=== PATIENT | female | born 1985 | race Two or more races ===

== ENCOUNTER 2024-10-06 09:08 | Outpatient (AMB) | payer BC, SELFPAY ==
--- NOTE | 2024-10-06 09:15 | AMB.OBINITIA ---
Vital Signs 10/06/24 09:22 Height 1.57 m Height Method Stated Weight 110.677 kg Weight Measurement Method Standing Scale BMI 44.6 BP 136/78 H Blood Pressure Source Automatic Cuff Blood Pressure Location Right Upper Arm Position Sitting Respiration 18 Pulse 78 Pulse Source Monitor Temp 98 F Temp Source Temporal Artery Scan Pulse Oximetry (%) 98 Oxygen Delivery Method Room Air Allergies/Home Meds Allergies & Medications Allergies No Known Allergies Allergy (Verified 10/06/24 09:23) Medication Reconciliation No Known Home Medications 10/06/24 [History Confirmed 10/06/24] Intake Visit Data Collection New Patient or Established: New Patient (never been to [facility]) Reason for Visit:: First OB visit Do You Feel Safe at Home: Yes Authorities Contacted: N/A PCP or OBGYN visit in last 3 months: Yes Pain Present Currently: No Smoking Status Smoking Status: Never smoker Questionnaires Covid-19 Vaccine Questionnaire Has patient been vacinated for Covid-19 Have you been vacinated for Covid-19: Yes PHQ-9 PHQ-2 Over the last 2 weeks, how often have you been bothered by any of the following problems? 1. Little interest or pleasure in doing things: not at all 2. 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 No set hours Tobacco History Smoking Status: Never smoker Domestic Abuse History Do You Feel Safe at Home: Yes Past Medical History Past Medical History Have you ever been diagnosed with any of the following: Reproductive Problems Endometriosis: No Fibroids: No Genital Herpes: No Pelvic Inflammatory Disease: No Polycystic Ovarian Syndrome: No Previous Pregnancies: Yes (History of vaginal delivery times 08/25/2011 and 3 years ago epidural x 3) Endocrine Problems Diabetes Mellitus Type 2: No Hypothyroidism: Yes (On levothyroxine 88 mcg daily) Blood Problems Anemia: No Psychologic Problems Depression: No Anxiety: No Other Problems Hospitalization: Yes (For childbirth x 3 she will need extension on the) History of Present Illness HPI Narrative Patient is a 39-year-old -0-2-3 status post vaginal delivery x 3. Her children are 1612 and 3. She had uncomplicated vaginal deliveries. She had epidural x 3 in the past. She has had 2 miscarriages in the past. Patient's last Pap was in 2022. She will have 1 at her visit. OB Ultrasound Indication Indication: Size dates and viability OB Ultrasound Ultrasound technique: transvaginal Gestational sac assessment: Presence, location, size, shape: Live IUP crown-rump length 7.51cm. 13-4/7 weeks cardiac activity noted. OB Initial Visit Menstrual History Menstrual reliability: definite Flow: normal Menstrual regularity: irregular Monthly: No Age at menarche: 15 On control pills at conception: No Date of positive home test: 08/09/24 OB History : 6 Para: 3 Hx Total # of Abortions (Spontaneous & Elective): 2 # of Living Children: 3 Delivery History 1st : Child's name: amber date: 05/05/08 sex: male Gestational age at delivery (weeks): 38 Delivery type: vaginal weight (lbs): 2721.554 g History of depression before or after : No 2nd : Child's name: keo date: 09/13/12 sex: male Gestational age at delivery (weeks): 37 Delivery type: vaginal weight (lbs): 3175.147 g History of depression before or after : No 3rd : Child's name: jeanie date: 08/23/21 sex: female Gestational age at delivery (weeks): 38 Delivery type: vaginal weight (lbs): 2721.554 g History of depression before or after : No Infection History & Risk Evaluation History of STDs: none HIV risk evaluation: low risk Hepatitis B risk evaluation: low risk Patient or partner has history of Genital Herpes: No Varicella/chicken pox status: immunized Genetic Screening & History Genetic Screening/Teratology Counseling - Includes patient, baby's father, or anyone in either family with: 1. Patient's age 35 years or older as of estimated date of delivery: Yes 2. Thalassemia (Frisian, Kenyan, Mediterranean, or Background); MCV less than 80: No 3. Neural Tube Defect (Meningomyelocele, Spina Bifida, or Anencephaly): No 4. Congenital Heart Defect: No 5. Down Syndrome: No 6. Abad-Sachs (Ashkenazi Oriental Orthodox, Cajun, [place]): No 7. Betito Disease (Ashkenazi Oriental Orthodox): No 8. Familial Dysautonomia (Ashkenazi Oriental Orthodox): No 9. Sickle Cell Disease or Trait (): No 10. Hemophilia or other blood disorders: No 11. Muscular Dystrophy: No 12. Cystic Fibrosis: No 13. Maria Del Carmen's Chorea: No 14. Mental Retardation/Autism: No 15. Other inherited genetic or chromosomal disorder: No 16. Maternal Metabolic Disorder (EG,TYPE 1 Diabetes, PKU): No 17. Patient or baby's father had a child with defects not listed above: No 18. Recurrent loss or a stillbirth: No 19. Medications (including supplements, vitamins, herbs or otc drugs)/illicit/recreational drugs/alcohol since last menstrual period: No 20. Any other: No Infection History 1. Live with someone with TB or exposed to TB: No 2. Rash or viral illness since last menstrual period: No 3. Hepatitis B,C: No Other (see comments) Source: [employer] Exam General General Appearance: alert, in no apparent distress, comfortable, cooperative, healthy appearing, well groomed and obese Neck Neck exam: Present normal inspection, full ROM and trachea midline Chest Chest inspection: Present normal inspection and symmetric chest wall rise Resp Respiratory exam: Present normal lung sounds bilaterally Card Cardiovascular exam: Present regular rate, normal rhythm and normal heart sounds Abdominal Abdominal exam: Present soft and normal bowel sounds Psych Psychiatric exam: Present normal affect and normal mood Skin Skin exam: Present warm, dry, intact and normal color Assessment & Plan Diagnosis / Problem List (1) : Status: Acute Qualifiers: Weeks of gestation: 13 weeks Qualified Code(s): Z3A.13 - 13 weeks gestation of Assessment and Plan: New OB. Pap will be deferred till . Ordered labs. Patient is unsure about NIPT. (2) Morbid obesity with BMI of 40.0-44.9, adult: Status: Acute (3) Hypothyroidism affecting : Status: Acute Qualifiers: Trimester: first trimester Qualified Code(s): O99.281 - Endocrine, nutritional and metabolic diseases complicating , first trimester; E03.9 - Hypothyroidism, unspecified Additional Plan Follow Up: 4 Weeks Office Procedures OB Clinic LOC & Office Proc's Nursing/Assessment Patient Status: Initial/New Patient OB Clinic Nursing Assessment: Medication Reconciliation, Update PMH in EMR and Vital Signs OB Clinic Coordination of Care: Complex Care and Chronic Disease 1-5, Education Complex Pt/Fam, Education Simp Pt/Fam, Lab and Imaging orders, Results/Orders obtained and Staff clarify orders Special Needs: Heart tones New Patient Charge New Patient Point Assignment: [id number] New Patient Point Charge: VP [employer] Level 4 ([id number]) Bedside Ultrasounds US Transvaginal at bedside: Yes
[2024-10-06 09:22] VITALS: BP 136/78; PULSE 78; RESP 18; TEMP 36.6; O2SAT 98; BMI 44.6
== END 2024-10-06 10:09 | disposition home or self-care (01) ==
PROVIDERS: Supervising Provider Obstetrics & Gynecology; Visit Provider Obstetrics & Gynecology
DX: O09.521 Supervision of elderly multigravida, first trimester (principal); O09.891 Supervision of other high risk pregnancies, first trimester; O99.281 Endocrine, nutritional and metabolic diseases complicating pregnancy, first trimester; E03.9 Hypothyroidism, unspecified; O99.211 Obesity complicating pregnancy, first trimester; E66.01 Morbid (severe) obesity due to excess calories; O09.291 Supervision of pregnancy with other poor reproductive or obstetric history, first trimester; O26.21 Pregnancy care for patient with recurrent pregnancy loss, first trimester; Z3A.13 13 weeks gestation of pregnancy; Z79.890 Hormone replacement therapy
CPT/HCPCS: 76817; 99203; 99204; G0463

== ENCOUNTER 2024-11-04 11:03 | Outpatient (AMB) | payer BC, SELFPAY ==
[2024-11-04 11:13] VITALS: BP 113/75; PULSE 90; RESP 18; TEMP 36.4; O2SAT 97; BMI 45.5
--- NOTE | 2024-11-04 11:13 | AMB.OBVISIT ---
Vital Signs 11/04/24 11:13 Height 1.57 m Height Method Stated Weight 112.151 kg Weight Measurement Method Standing Scale BMI 45.5 BP 113/75 Blood Pressure Source Automatic Cuff Blood Pressure Location Right Upper Arm Position Sitting Respiration 18 Pulse 90 Pulse Source Monitor Temp 97.5 F Temp Source Oral Pulse Oximetry (%) 97 Oxygen Delivery Method Room Air Allergies/Home Meds Allergies & Medications Allergies No Known Allergies Allergy (Verified 11/04/24 11:14) Medication Reconciliation clobetasol 0.05 % topical ointment 1 applic topical QHS 4 weeks #45 grams 11/04/24 [Rx] Intake Visit Data Collection New Patient or Established: Established Patient (seen at [facility] within 3 years) Reason for Visit:: CARE Seen by Clinical Staff ONLY (RN/MA): No Animal Husbandry Technician Required: No Do You Feel Safe at Home: Yes Authorities Contacted: N/A PCP or OBGYN visit in last 3 months: Yes Hx Now: Yes Are you currently on any form of Control: No Pain Present Currently: No Pain Scale Used: Peterson-Giordano/Numerical Pain scale:: 0 Smoking Status Smoking Status: Never smoker Questionnaires Covid-19 Vaccine Questionnaire Has patient been vacinated for Covid-19 Have you been vacinated for Covid-19: Yes PHQ-9 PHQ-2 Over the last 2 weeks, how often have you been bothered by any of the following problems? 1. Little interest or pleasure in doing things: not at all 2. Feeling down, depressed, or hopeless: not at all Total score: 0 PHQ-9 3. Trouble falling or staying asleep, or sleeping too much: Not at all 4. Feeling tired or having little energy: Not at all 5. Poor appetite or overeating: Not at all 6. Feeling bad about yourself - or that you are a failure or have let yourself or your family down: Not at all 7. Trouble concentrating on things, such as reading the newspaper or watching television: Not at all 8. Moving or speaking so slowly that other people could have noticed? - Or the opposite - being so fidgety or restless that you have been moving around a lot more than usual: not at all 9. Thoughts that you would be better off or of hurting yourself in some way: Not at all Total score: 0 Source: Developed by Drs. Evangelista Brooks, Joceline Ahn, Jim King and colleagues, with an educational rubia from [email or web address]. 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 She is hypothyroid and Dr. Diaz is working on her thyroid medications. Care OB Visit Log OB Flowsheet Initial Weight: Not Recorded Date <del>?</del> EGA Weight BP Alb Glu CTX Pres Fundal ht FHR Mov Dilation Station Effacement Hx Notes Visit Note 11/04/24 <del>?</del> 17w 5d 112.151 kg 113/75 17 active Positive flutter. No vaginal bleeding or loss of fluids. Patient is tired. She reports dry skin. And states her face is very dry around her cheeks. DEMETRIUS Calculator Estimated Delivery Date Method Current WG Current Estimate 04/09/25 Ultrasound #1 17w 5d Other Estimates 04/11/25 LMP (Certain) 17w 3d Expected Delivery Route/Plan Patient is a 39-year-old -0-2-3 history of 3 uncomplicated vaginal deliveries in the past. Specific Issue/Plans 1.Obesity with BMI of 45 2. AMA normal NIPT, for level 2 ultrasound 3. Hypothyroid on medication. Notes Visit Date: 11/04/24 Last Updated by: Beverley Menon (OB Clinic)MD Clobetasol ointment ordered to face. Patient on baby aspirin. Dr. Diaz is working on thyroid. Referral to maternal- medicine for 20-week structural survey. NIPT was 46 XY. Office Procedures OB Clinic LOC & Office Proc's Nursing/Assessment Patient Status: Established Patient OB Clinic Nursing Assessment: Medication Reconciliation, Update PMH in EMR and Vital Signs OB Clinic Coordination of Care: Complex Care and Chronic Disease 1-5, Consent,records obtained, informed consent, Education Simp Pt/Fam, Lab and Imaging orders, Results/Orders obtained and Staff clarify orders Special Needs: Heart tones Established Patient Charge Established Patient Point Assignment: 135 Established Patient Point Charge: EP Level 4 (120-155) Assessment & Plan Diagnosis / Problem List (1) Morbid obesity with BMI of 40.0-44.9, adult: Status: Acute Assessment and Plan: Patient on baby aspirin daily. For level [address] Urias. (2) : Status: Acute Qualifiers: Weeks of gestation: 16 weeks Qualified Code(s): Z3A.16 - 16 weeks gestation of Assessment and Plan: NIPT normal. No labs on chart yet. Will find out where she had these drawn and get them on chart. (3) Hypothyroidism affecting : Status: Acute Qualifiers: Trimester: first trimester Qualified Code(s): O99.281 - Endocrine, nutritional and metabolic diseases complicating , first trimester; E03.9 - Hypothyroidism, unspecified Assessment and Plan: Dr. Diaz checking levels. On 88 mcg of levothyroxine daily. (4) Eczema: Status: Acute Qualifiers: Eczema type: unspecified Qualified Code(s): L30.9 - Dermatitis, unspecified Assessment and Plan: Clobetasol ointment written for eczema on face (5) Advanced maternal age (AMA) in : Status: Acute Assessment and Plan: NIPT normal 46 XY. Level 2 ultrasound will be ordered
== END 2024-11-04 11:42 | disposition home or self-care (01) ==
LOC: HODSOBC 11:03
PROVIDERS: Supervising Provider Obstetrics & Gynecology; Visit Provider Obstetrics & Gynecology
DX: O09.522 Supervision of elderly multigravida, second trimester (principal); Z3A.17 17 weeks gestation of pregnancy; O09.892 Supervision of other high risk pregnancies, second trimester; O99.212 Obesity complicating pregnancy, second trimester; E66.01 Morbid (severe) obesity due to excess calories; O99.282 Endocrine, nutritional and metabolic diseases complicating pregnancy, second trimester; E03.9 Hypothyroidism, unspecified; L30.9 Dermatitis, unspecified; O99.712 Diseases of the skin and subcutaneous tissue complicating pregnancy, second trimester; Z79.82 Long term (current) use of aspirin; Z79.890 Hormone replacement therapy
CPT/HCPCS: 99214; G0463

== ENCOUNTER 2024-12-05 11:09 | Outpatient (AMB) | payer BC, SELFPAY ==
[2024-12-05 11:25] VITALS: BP 110/64; PULSE 77; RESP 17; TEMP 36.6; O2SAT 95; BMI 45.5
--- NOTE | 2024-12-05 11:25 | OBCLNT_ITS ---
Vital Signs 12/05/24 11:25 Height 1.57 m Height Method Measured Weight 112.945 kg Weight Measurement Method Standing Scale BMI 45.5 BP 110/64 Blood Pressure Source Automatic Cuff Blood Pressure Location Right Upper Arm Position Sitting Respiration 17 Pulse 77 Pulse Source Monitor Temp 97.8 F Temp Source Temporal Artery Scan Pulse Oximetry (%) 95 Oxygen Delivery Method Room Air Allergies/Home Meds Allergies & Medications Allergies No Known Allergies Allergy (Verified 12/05/24 11:25) Intake Visit Data Collection New Patient or Established: Established Patient (seen at [facility] within 3 years) Reason for Visit:: OBC Seen by Clinical Staff ONLY (RN/MA): No Operator Automated Process Required: No Do You Feel Safe at Home: Yes Authorities Contacted: N/A PCP or OBGYN visit in last 3 months: Yes Date of Last PCP or OBGYN visit: 11/04/24 Hx Now: Yes Are you currently on any form of Control: No Pain Present Currently: No Pain Scale Used: Peterson-Giordano/Numerical Pain scale:: 0 Smoking Status Smoking Status: Never smoker Questionnaires Covid-19 Vaccine Questionnaire Has patient been vacinated for Covid-19 Have you been vacinated for Covid-19: Yes PHQ-9 PHQ-2 Over the last 2 weeks, how often have you been bothered by any of the following problems? 1. Little interest or pleasure in doing things: not at all PHQ-9 8. Moving or speaking so slowly that other people could have noticed? - Or the opposite - being so fidgety or restless that you have been moving around a lot more than usual: not at all Source: Developed by Drs. Evangelista Brooks, Joceline Ahn, Jim King and colleagues, with an educational rubia from [employer]. 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 Her children are age 16, 12, and 3. Care OB Visit Log OB Flowsheet Initial Weight: Not Recorded Date -?-?-?-?-?-?-?-?-?-?-?-?- EGA Weight BP Alb Glu CTX Pres Fundal ht FHR Mov Dilation Station Effacement Hx Notes Visit Note 11/04/24 -?-?-?-?-?-?-?-?-?-?-?-?- 17w 5d 112.151 kg 113/75 17 active Positive flutter. No vaginal bleeding or loss of fluids. Patient is tired. She reports dry skin. And states her face is very dry around her cheeks. 12/05/24 -?-?-?-?-?-?-?-?-?-?-?-?- 22w 1d 112.945 kg 110/64 23 absent active Positive feta l movement no contractions no loss of fluids having gender reveal republican. Has 2 boys at home and a girl. The girl is the youngest. DEMETRIUS Calculator Estimated Delivery Date Method Current WG Current Estimate 04/09/25 Ultrasound #1 22w 1d Other Estimates 04/11/25 LMP (Certain) 21w 6d Expected Delivery Route/Plan Patient is a 39-year-old -0-2-3 history of 3 uncomplicated vaginal deliveries in the past. Specific Issue/Plans 1.Obesity with BMI of 45 2. AMA normal NIPT, for level 2 ultrasound 3. Hypothyroid on medication. Notes Visit Date: 12/05/24 Last Updated by: Beverley Menon (OB Clinic)MD labs up-to-date on the chart ordered 10/06/2024 from [facility] /antibody negative/rubella immune/ RPR nonreactive/ hepatitis B surface antigen negative/ GC negative /Chlamydia negative/ hepatitis C negative /hepatitis B negative/ HIV negative/ urine culture negative/NIPT 46 XY hemoglobin A1c 5.7 hemoglobin 11 hematocrit [address] Urias on chart. Baby 98th percentile. Visit Date: 11/04/24 Last Updated by: Beverley Menon (OB Clinic)MD Clobetasol ointment ordered to face. Patient on baby aspirin. Dr. Diaz is working on thyroid. Referral to maternal- medicine for 20-week structural survey. NIPT was 46 XY. Office Procedures OB Clinic LOC & Office Proc's Nursing/Assessment Patient Status: Established Patient OB Clinic Nursing Assessment: Medication Reconciliation, Update PMH in EMR and Vital Signs OB Clinic Coordination of Care: Consent,records obtained, informed consent, Lab and Imaging orders and Staff clarify orders Special Needs: Heart tones Established Patient Charge Established Patient Point Assignment: 90 Established Patient Point Charge: EP Level 3 (80-115)
== END 2024-12-05 11:41 | disposition home or self-care (01) ==
PROVIDERS: Supervising Provider Obstetrics & Gynecology; Visit Provider Obstetrics & Gynecology
DX: O09.522 Supervision of elderly multigravida, second trimester (principal); O09.892 Supervision of other high risk pregnancies, second trimester; O99.282 Endocrine, nutritional and metabolic diseases complicating pregnancy, second trimester; E03.9 Hypothyroidism, unspecified; O99.212 Obesity complicating pregnancy, second trimester; Z3A.22 22 weeks gestation of pregnancy; Z79.890 Hormone replacement therapy
CPT/HCPCS: 99213; G0463

== ENCOUNTER 2025-01-05 14:23 | Outpatient (AMB) | payer BC, SELFPAY ==
[2025-01-05 14:32] VITALS: BP 108/69; PULSE 94; RESP 17; TEMP 36.4; O2SAT 98; BMI 46.3
--- NOTE | 2025-01-05 14:32 | AMB.OBVISIT ---
Vital Signs 01/05/25 14:32 Height 1.57 m Height Method Stated Weight 114.305 kg Weight Measurement Method Standing Scale BMI 46.3 BP 108/69 Blood Pressure Source Automatic Cuff Blood Pressure Location Right Upper Arm Position Sitting Respiration 17 Pulse 94 Pulse Source Monitor Temp 97.6 F Temp Source Temporal Artery Scan Pulse Oximetry (%) 98 Oxygen Delivery Method Room Air Allergies/Home Meds Allergies & Medications Allergies No Known Allergies Allergy (Verified 01/05/25 14:33) Medication Reconciliation No Known Home Medications 01/05/25 [History Confirmed 01/05/25] Intake Visit Data Collection New Patient or Established: Established Patient (seen at [facility] within 3 years) Reason for Visit:: OBC Seen by Clinical Staff ONLY (RN/MA): No Acid Operator Required: No Do You Feel Safe at Home: Yes Authorities Contacted: N/A PCP or OBGYN visit in last 3 months: Yes Hx Now: Yes Are you currently on any form of Control: No Pain Present Currently: No Pain Scale Used: Peterson-Giordano/Numerical Pain scale:: 0 Smoking Status Smoking Status: Never smoker Questionnaires Covid-19 Vaccine Questionnaire Has patient been vacinated for Covid-19 Have you been vacinated for Covid-19: Yes PHQ-9 PHQ-2 Over the last 2 weeks, how often have you been bothered by any of the following problems? 1. Little interest or pleasure in doing things: not at all 2. Feeling down, depressed, or hopeless: not at all Total score: 0 PHQ-9 3. Trouble falling or staying asleep, or sleeping too much: Not at all 4. Feeling tired or having little energy: Not at all 5. Poor appetite or overeating: Not at all 6. Feeling bad about yourself - or that you are a failure or have let yourself or your family down: Not at all 7. Trouble concentrating on things, such as reading the newspaper or watching television: Not at all 8. Moving or speaking so slowly that other people could have noticed? - Or the opposite - being so fidgety or restless that you have been moving around a lot more than usual: not at all 9. Thoughts that you would be better off or of hurting yourself in some way: Not at all Total score: 0 If you checked off any problems, how difficult have these problems made it for you to do your work, take care of things at home, or get along with other people?: not difficult at all Source: Developed by Drs. Evangelista Brooks, Joceline Ahn, Jim King and colleagues, with an educational rubia from [employer]. 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 No vaginal bleeding or loss of fluids. Patient is tired. She reports dry skin. And states her face is very dry around her cheeks. 12/05/24 <del>?</del> 22w 1d 112.945 kg 110/64 23 absent active Positive movement no contractions no loss of fluids having gender reveal alliance party. Has 2 boys at home and a girl. The girl is the youngest. 01/05/25 <del>?</del> 26w 4d 114.305 kg 108/69 27 active Good movement no contractions no loss of bleeding. Dr. Urias is going to see her next week. Order 2-hour glucose test from [facility]. Baby was measuring large at first ultrasound. Her biggest baby was 7 pounds. DEMETRIUS Calculator Estimated Delivery Date Method Current WG Current Estimate 04/09/25 Ultrasound #1 26w 4d Other Estimates 04/11/25 LMP (Certain) 26w 2d Expected Delivery Route/Plan Patient is a 39-year-old -0-2-3 history of 3 uncomplicated vaginal deliveries in the past. Specific Issue/Plans 1.Obesity with BMI of 45 2. AMA normal NIPT, for level 2 ultrasound 3. Hypothyroid on medication. Notes Visit Date: 12/05/24 Last Updated by: Beverley Menon (OB Clinic)MD labs up-to-date on the chart ordered 10/06/2024 from [facility] /antibody negative/rubella immune/ RPR nonreactive/ hepatitis B surface antigen negative/ GC negative /Chlamydia negative/ hepatitis C negative /hepatitis B negative/ HIV negative/ urine culture negative/NIPT 46 XY hemoglobin A1c 5.7 hemoglobin 11 hematocrit [address] Urias on chart. Baby 98th percentile. Visit Date: 11/04/24 Last Updated by: Beverley Menon (OB Clinic)MD Clobetasol ointment ordered to face. Patient on baby aspirin. Dr. Diaz is working on thyroid. Referral to maternal- medicine for 20-week structural survey. NIPT was 46 XY. Office Procedures OB Clinic LOC & Office Proc's Nursing/Assessment Patient Status: Established Patient OB Clinic Nursing Assessment: Medication Reconciliation, Update PMH in EMR and Vital Signs OB Clinic Coordination of Care: Complex Care and Chronic Disease 1-5, Consent,records obtained, informed consent, Education Simp Pt/Fam and Staff clarify orders Special Needs: Heart tones Established Patient Charge Established Patient Point Assignment: 115 Established Patient Point Charge: EP Level 3 (80-115)
== END 2025-01-05 15:20 | disposition home or self-care (01) ==
LOC: HODSOBC 14:23
PROVIDERS: PCP Obstetrics & Gynecology; Referring Provider Obstetrics & Gynecology; Supervising Provider Obstetrics & Gynecology; Visit Provider Obstetrics & Gynecology
DX: O09.522 Supervision of elderly multigravida, second trimester (principal); O09.892 Supervision of other high risk pregnancies, second trimester; O99.212 Obesity complicating pregnancy, second trimester; O99.282 Endocrine, nutritional and metabolic diseases complicating pregnancy, second trimester; E03.9 Hypothyroidism, unspecified; Z3A.26 26 weeks gestation of pregnancy; Z79.890 Hormone replacement therapy
CPT/HCPCS: 99213; G0463

== ENCOUNTER → 2025-01-06 | Outpatient (CLI) | payer BC, SELFPAY ==
[2025-01-06 13:17] LABS: Basophils # (Auto) 0.0 Thou/mm3 (0.0-0.2); Basophils % (Auto) 0 % (0-2.5); Eosinophils # (Auto) 0.2 Thou/mm3 (0.0-0.5); Eosinophils % (Auto) 3 % (0-10); Hematocrit 31.4 % (36.0-46.0); Hemoglobin 9.8 g/dL (12.0-16.0); Immature Granulocytes Auto 0.04 Thou/mm3 (0.00-0.00); Lymphocytes # (Auto) 1.3 Thou/mm3 (1.0-4.8); Lymphocytes % (Auto) 15 % (10-50); Mean Corpuscular HGB Conc 31.2 g/dl (31.0-37.0); Mean Corpuscular Hemoglobin 26.5 pg (25.0-35.0); Mean Corpuscular Volume 85 fL (80-100); Monocytes # (Auto) 0.6 Thou/mm3 (0.0-0.8); Monocytes % (Auto) 7 % (0-12); Neutrophils # (Auto) 6.5 Thou/mm3 (1.8-7.7); Neutrophils % (Auto) 75 % (37-80); Nucleated Red Blood Cell # 0.00 Thou/mm3 (0.00-0.00); Nucleated Red Blood Cell % 0 /100 WBC (0); Platelet Count 214 Thou/mm3 (140-440); RDW Standard Deviation 42.3 fL (36.4-46.3); Red Blood Count 3.70 Miln/mm3 (4.00-5.20); White Blood Count 8.6 Thou/mm3 (3.6-11.0)
[2025-01-06 13:33] LABS: Glucose, Fasting 63 mg/dL (74-106)
[2025-01-06 13:54] LABS: Syphilis Nonreactive (Nonreactive)
[2025-01-06 14:33] LABS: Glucose 1 Hour 124 mg/dL (120-170)
[2025-01-06 14:38] LABS: Glucose 1/2 Hour 114 mg/dL (110-170)
[2025-01-06 15:36] LABS: Glucose 2 Hour 116 mg/dL (70-120)
== END | disposition home or self-care (01) ==
LOC: COPL 11:55
PROVIDERS: PCP Family Medicine; Referring Provider Obstetrics & Gynecology; Visit Provider Obstetrics & Gynecology
DX: Z34.90 Encounter for supervision of normal pregnancy, unspecified, unspecified trimester (principal)
CPT/HCPCS: 36415; 82951; 82952; 85025; 86780

== ENCOUNTER 2025-02-04 09:49 | Outpatient (AMB) | payer BC, SELFPAY ==
[2025-02-04 10:37] VITALS: BP 128/78; PULSE 84; RESP 16; TEMP 36.2; O2SAT 98; BMI 46.4
--- NOTE | 2025-02-04 10:37 | OBCLNT_ITS ---
Vital Signs 02/04/25 10:37 Height 1.57 m Height Method Stated Weight 114.532 kg Weight Measurement Method Standing Scale BMI 46.4 BP 128/78 Blood Pressure Source Automatic Cuff Blood Pressure Location Left Upper Arm Position Sitting Respiration 16 Pulse 84 Pulse Source Monitor Temp 97.2 F Temp Source Oral Pulse Oximetry (%) 98 Oxygen Delivery Method Room Air Allergies/Home Meds Allergies & Medications Allergies No Known Allergies Allergy (Verified 02/04/25 10:38) Medication Reconciliation No Known Home Medications 01/05/25 [History Confirmed 02/04/25] Intake Visit Data Collection New Patient or Established: Established Patient (seen at [facility] within 3 years) Reason for Visit:: [facility] Seen by Clinical Staff ONLY (RN/MA): No Absorption And Adsorption Engineer Required: No Do You Feel Safe at Home: Yes Authorities Contacted: N/A PCP or OBGYN visit in last 3 months: Yes Date of Last PCP or OBGYN visit: 01/05/25 Hx Now: Yes Are you currently on any form of Control: No Pain Present Currently: No Pain Scale Used: Peterson-Giordano/Numerical Pain scale:: 0 Smoking Status Smoking Status: Never smoker Questionnaires Covid-19 Vaccine Questionnaire Has patient been vacinated for Covid-19 Have you been vacinated for Covid-19: Yes PHQ-9 PHQ-2 Over the last 2 weeks, how often have you been bothered by any of the following problems? 1. Little interest or pleasure in doing things: not at all 2. Feeling down, depressed, or hopeless: not at all Total score: 0 PHQ-9 3. Trouble falling or staying asleep, or sleeping too much: Not at all 4. Feeling tired or having little energy: Not at all 5. Poor appetite or overeating: Not at all 6. Feeling bad about yourself - or that you are a failure or have let yourself or your family down: Not at all 7. Trouble concentrating on things, such as reading the newspaper or watching television: Not at all 8. Moving or speaking so slowly that other people could have noticed? - Or the opposite - being so fidgety or restless that you have been moving around a lot more than usual: not at all 9. Thoughts that you would be better off or of hurting yourself in some way: Not at all Total score: 0 If you checked off any problems, how difficult have these problems made it for you to do your work, take care of things at home, or get along with other people?: not difficult at all Source: Developed by Drs. Evangelista Brooks, Joceline Ahn, Jim King and colleagues, with an educational rubia from [employer]. 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 No vaginal bleeding or loss of fluids. Patient is tired. She reports dry skin. And states her face is very dry around her cheeks. 12/05/24 -?-?-?-?-?-?-?-?-?-?-?--?- 22w 1d 112.945 kg 110/64 23 absent active Positive feta l movement no contractions no loss of fluids having gender reveal democrat. Has 2 boys at home and a girl. The girl is the youngest. 01/05/25 -?-?-?-?-?-?-?-?-?-?-?-?- 26w 4d 114.305 kg 108/69 27 active Good movement no contractions no loss of bleeding. Dr. Urias is going to see her next week. Order 2-hour glucose test from [facility]. Baby was measuring large at first ultrasound. Her biggest baby was 7 pounds. 02/04/25 -?-?-?-?-?-?-?-?-?-?-?-?- 30w 6d 114.532 kg 128/78 31 134 active +FM No UCs or LOF DEMETRIUS Calculator Estimated Delivery Date Method Current WG Current Estimate 04/09/25 Ultrasound #1 31w 4d Other Estimates 04/11/25 LMP (Certain) 31w 2d Expected Delivery Route/Plan Patient is a 39-year-old -0-2-3 history of 3 uncomplicated vaginal deliveries in the past. Largest baby 7 lbs 10 oz Specific Issue/Plans 1 .Obesity with BMI of 45 Need NSTS/AFIs at 36 weeks 2. AMA normal NIPT, for level 2 ultrasound 3. Hypothyroid on medication. 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 Re commended brace and PT. BMI 45 Visit Date: 12/05/24 Last Updated by: Beverley Menon ([facility] Clinic)MD labs up-to-date on the chart ordered 10/06/2024 from [facility] /antibody negative/rubella immune/ RPR nonreactive/ hepatitis B surface antigen negative/ GC negative /Chlamydia negative/ hepatitis C negative /hepatitis B neg ative/ HIV negative/ urine culture negative/NIPT 46 XY hemoglobin A1c 5.7 hemoglobin 11 hematocrit [address] Level [address] Urias on chart. Baby 98th percentile. Visit Date: 11/04/24 Last Updated by: Beverley Menon ([facility] Clinic)MD Clobetasol ointment ordered to face. Patient on baby aspirin. Dr. Tim zamudio is working on thyroid. Referral to maternal- medicine for 20-week structural survey. NIPT was 46 XY. Office Procedures OB Clinic LOC & Office Proc's Nursing/Assessment Patient Status: Established Patient OB Clinic Nursing Assessment: Medication Reconciliation, Update PMH in EMR and Vital Signs OB Clinic Coordination of Care: Education Complex Pt/Fam, Consent,records obtained, informed consent, Lab and Imaging orders, Results/Orders obtained and Staff clarify orders Special Needs: Heart tones Established Patient Charge Established Patient Point Assignment: 115 Established Patient Point Charge: EP Level 3 (80-115)
== END 2025-02-04 11:20 | disposition home or self-care (01) ==
LOC: HODSOBC 09:49
PROVIDERS: Supervising Provider Obstetrics & Gynecology; Visit Provider Obstetrics & Gynecology
DX: O09.523 Supervision of elderly multigravida, third trimester (principal); O09.893 Supervision of other high risk pregnancies, third trimester; O99.213 Obesity complicating pregnancy, third trimester; O99.283 Endocrine, nutritional and metabolic diseases complicating pregnancy, third trimester; E03.9 Hypothyroidism, unspecified; Z3A.30 30 weeks gestation of pregnancy; Z79.890 Hormone replacement therapy
CPT/HCPCS: 99213; G0463

== ENCOUNTER 2025-02-18 10:07 | Outpatient (AMB) | payer BC, SELFPAY ==
[2025-02-18 10:12] VITALS: BP 121/75; PULSE 89; RESP 16; TEMP 36.6; O2SAT 98; BMI 47.0
--- NOTE | 2025-02-18 10:12 | OBCLNT_ITS ---
Vital Signs 02/18/25 10:12 Height 1.57 m Height Method Stated Weight 115.779 kg Weight Measurement Method Standing Scale BMI 47.0 BP 121/75 Blood Pressure Source Automatic Cuff Blood Pressure Location Left Upper Arm Position Sitting Respiration 16 Pulse 89 Pulse Source Monitor Temp 97.8 F Temp Source Oral Pulse Oximetry (%) 98 Oxygen Delivery Method Room Air Allergies/Home Meds Allergies & Medications Allergies No Known Allergies Allergy (Verified 02/18/25 10:12) Medication Reconciliation No Known Home Medications 01/05/25 [History Confirmed 02/18/25] Intake Visit Data Collection New Patient or Established: Established Patient (seen at [facility] within 3 years) Reason for Visit:: OBC Seen by Clinical Staff ONLY (RN/MA): No Electronics Assembler Required: No Do You Feel Safe at Home: Yes Authorities Contacted: N/A PCP or OBGYN visit in last 3 months: Yes Date of Last PCP or OBGYN visit: 02/04/25 Hx Now: Yes Are you currently on any form of Control: No Pain Present Currently: No Pain Scale Used: Peterson-Giordano/Numerical Pain scale:: 0 Smoking Status Smoking Status: Never smoker Questionnaires Covid-19 Vaccine Questionnaire Has patient been vacinated for Covid-19 Have you been vacinated for Covid-19: Yes PHQ-9 PHQ-2 Over the last 2 weeks, how often have you been bothered by any of the following problems? 1. Little interest or pleasure in doing things: not at all 2. Feeling down, depressed, or hopeless: not at all Total score: 0 PHQ-9 3. Trouble falling or staying asleep, or sleeping too much: Not at all 4. Feeling tired or having little energy: Not at all 5. Poor appetite or overeating: Not at all 6. Feeling bad about yourself - or that you are a failure or have let yourself or your family down: Not at all 7. Trouble concentrating on things, such as reading the newspaper or watching television: Not at all 8. Moving or speaking so slowly that other people could have noticed? - Or the opposite - being so fidgety or restless that you have been moving around a lot more than usual: not at all 9. Thoughts that you would be better off or of hurting yourself in some way: Not at all Total score: 0 If you checked off any problems, how difficult have these problems made it for you to do your work, take care of things at home, or get along with other people?: not difficult at all Source: Developed by Drs. Evangelista Brooks, Joceline Ahn, Jim King and colleagues, with an educational rubia from [employer]. 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 No vaginal bleeding or loss of fluids. Patient is tired. She reports dry skin. And states her face is very dry around her cheeks. 12/05/24 -?-?-?-?-?-?-?-?-?-?-?-?- 22w 1d 112.945 kg 110/64 23 absent active Positive feta l movement no contractions no loss of fluids having gender reveal alliance party. Has 2 boys at home and a girl. The girl is the youngest. 01/05/25 -?-?-?-?-?-?-?-?-?-?-?-?- 26w 4d 114.305 kg 108/69 27 active Good movement no contractions no loss of bleeding. Dr. Urias is going to see her next week. Order 2-hour glucose test from [email or web address]. Baby was measuring large at first ultrasound. Her biggest baby was 7 pounds. 02/04/25 -?-?-?-?-?-?-?-?-?-?-?-?- 30w 6d 114.532 kg 128/78 31 134 active +FM No UCs or LOF 02/18/25 -?-?-?-?-?-?-?-?-?-?-?-?- 32w 6d 115.779 kg 121/75 absent 33 145 a ctive Patient with severe sciatic pain. Good movem ent. No contractions or loss of fluids. DEMETRIUS Calculator Estimated Delivery Date Method Current WG Current Estimate 04/09/25 Ultrasound #1 33w 0d Other Estimates 04/11/25 LMP (Certain) 32w 5d Expected Delivery Route/Plan Patient is a 39-year-old -0-2-3 history of 3 uncomplicated vaginal deliveries in the past. Largest baby 7 lbs 10 oz Specific Issue/Plans 1 .Obesity with BMI of 45 Need NSTS/AFIs at 36 weeks 2. AMA normal NIPT, for level 2 ultrasound 3. Hypothyroid on medication. Notes Visit Date: 02/18/25 Last Updated by: Beverley Menon ([facility] Clinic)MD Patient has severe sciatic pain pain. She has an appointment with physical therapy but is not for about a month. At this point we will take her off work. She had sciatic pain in her last and knows the exercises to do. We have will take patient off now on disability. She has an appointment coming up with Dr. Urias for a repeat ultrasound for growth. 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 Recommended brace and PT. BMI 45 Visit Date: 12/05/24 Last Updated by: Beverley Menon ([facility])MD labs up-to-date on the chart ordered 10/06/2024 from [facility] /antibody negative/rubella immune/ RPR nonreactive/ hepatitis B surface antigen negative/ GC negative /Chlamydia negative/ hepatitis C negative /hepatitis B negative/ HIV negative/ urine culture negative/NIPT 46 XY hemoglobin A1c 5.7 hemoglobin 11 hematocrit [address] Level [address] Urias on chart. Baby 98th percentile. Visit Date: 11/04/24 Last Updated by: Beverley Menon (OB Clinic), Clobetasol ointment ordered to face. Patient on baby aspirin. Dr. Diaz is working on thyroid. Referral to maternal- medicine for 20-week structural survey. NIPT was 46 XY. Office Procedures OB Clinic LOC & Office Proc's Nursing/Assessment Patient Status: Established Patient OB Clinic Nursing Assessment: Medication Reconciliation, Update PMH in EMR and Vital Signs OB Clinic Coordination of Care: Education Complex Pt/Fam, Consent,records obtained, informed consent, Lab and Imaging orders and Staff clarify orders Special Needs: Heart tones Established Patient Charge Established Patient Point Assignment: 110 Established Patient Point Charge: EP Level 3 (80-115) Assessment & Plan Diagnosis / Problem List (1) Sciatic leg pain: Status: Acute Plan: Off work on disability at this time. She has an appointment for physical therapy. (2) Advanced maternal age (AMA) in : Status: Acute Plan: Normal NIPT and level 2 ultrasound NSTs at 36 weeks (3) Morbid obesity with BMI of 40.0-44.9, adult: Status: Acute Plan: On baby aspirin. NSTs at 36 weeks. (4) : Status: Acute Qualifiers: Weeks of gestation: 33 weeks Qualified Code(s): Z3A.33 - 33 weeks gestation of
== END 2025-02-18 10:39 | disposition home or self-care (01) ==
LOC: HODSOBC 10:07
PROVIDERS: Supervising Provider Obstetrics & Gynecology; Visit Provider Obstetrics & Gynecology
DX: O09.523 Supervision of elderly multigravida, third trimester (principal); O09.893 Supervision of other high risk pregnancies, third trimester; O99.213 Obesity complicating pregnancy, third trimester; E66.01 Morbid (severe) obesity due to excess calories; O99.283 Endocrine, nutritional and metabolic diseases complicating pregnancy, third trimester; E03.9 Hypothyroidism, unspecified; O99.353 Diseases of the nervous system complicating pregnancy, third trimester; M54.30 Sciatica, unspecified side; Z3A.32 32 weeks gestation of pregnancy
CPT/HCPCS: 99213; G0463

== ENCOUNTER → 2025-02-18 | Outpatient (CLI) | payer BC, SELFPAY ==
[2025-02-18 12:18] LABS: Hematocrit 30.3 % (36.0-46.0); Hemoglobin 9.3 g/dL (12.0-16.0)
== END | disposition home or self-care (01) ==
LOC: COPL 11:11
PROVIDERS: PCP Family Medicine; Referring Provider Obstetrics & Gynecology; Visit Provider Obstetrics & Gynecology
DX: D50.0 Iron deficiency anemia secondary to blood loss (chronic) (principal)
CPT/HCPCS: 36415; 85014; 85018

== ENCOUNTER 2025-03-09 10:37 | Outpatient (AMB) | payer BC, SELFPAY ==
[2025-03-09 11:00] VITALS: BP 133/80; PULSE 80; RESP 16; TEMP 36.3; O2SAT 98; BMI 47.3
--- NOTE | 2025-03-09 11:00 | OBCLNT_ITS ---
Vital Signs 03/09/25 11:00 Height 1.57 m Height Method Stated Weight 116.63 kg Weight Measurement Method Standing Scale BMI 47.3 BP 133/80 H Blood Pressure Source Automatic Cuff Blood Pressure Location Left Upper Arm Position Sitting Respiration 16 Pulse 80 Pulse Source Monitor Temp 97.3 F Temp Source Oral Pulse Oximetry (%) 98 Oxygen Delivery Method Room Air Allergies/Home Meds Allergies & Medications Allergies No Known Allergies Allergy (Verified 03/09/25 11:01) Medication Reconciliation No Known Home Medications 01/05/25 [History Confirmed 03/09/25] Intake Visit Data Collection New Patient or Established: Established Patient (seen at [facility] within 3 years) Reason for Visit:: OBC Seen by Clinical Staff ONLY (RN/MA): No 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 1. Little interest or pleasure in doing things: not at all 2. Feeling down, depressed, or hopeless: not at all Total score: 0 PHQ-9 3. Trouble falling or staying asleep, or sleeping too much: Not at all 4. Feeling tired or having little energy: Not at all 5. Poor appetite or overeating: Not at all 6. Feeling bad about yourself - or that you are a failure or have let yourself or your family down: Not at all 7. Trouble concentrating on things, such as reading the newspaper or watching television: Not at all 8. Moving or speaking so slowly that other people could have noticed? - Or the opposite - being so fidgety or restless that you have been moving around a lot more than usual: not at all 9. Thoughts that you would be better off or of hurting yourself in some way: Not at all Total score: 0 If you checked off any problems, how difficult have these problems made it for you to do your work, take care of things at home, or get along with other people?: not difficult at all Source: Developed by Drs. Evangelista Brooks, Joceline Ahn, Jim King and colleagues, with an educational rubia from [employer]. 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 No vaginal bleeding or loss of fluids. Patient is tired. She reports dry skin. And states her face is very dry around her cheeks. 12/05/24 -?-?-?-?-?-?-?-?-?-?-?--?- 22w 1d 112.945 kg 110/64 23 absent active Positive feta l movement no contractions no loss of fluids having gender reveal green party. Has 2 boys at home and a girl. The girl is the youngest. 01/05/25 -?-?-?-?-?-?-?-?-?-?-?-?- 26w 4d 114.305 kg 108/69 27 active Good movement no contractions no loss of bleeding. Dr. Urias is going to see her next week. Order 2-hour glucose test from [facility]. Baby was measuring large at first ultrasound. Her biggest baby was 7 pounds. 02/04/25 -?-?-?-?-?-?-?-?-?-?-?-?- 30w 6d 114.532 kg 128/78 31 134 active +FM No UCs or LOF 02/18/25 -?-?-?-?-?-?-?-?-?-?-?-?- 32w 6d 115.779 kg 121/75 absent 33 145 a ctive Patient with severe sciatic pain. Good movem ent. No contractions or loss of fluids. 03/09/25 -?-?-?-?-?-?-?-?-?-?-?-?- 35w 4d 116.63 kg 133/80 occasional 38 127 active Good movement no loss of fluids no contractions severe sciatic and pelvic pain. Saw Dr. Urias. Baby's abdomen 96 percentile baby's weight 71st percentile. DEMETRIUS Calculator Estimated Delivery Date Method Current WG Current Estimate 04/09/25 Ultrasound #1 35w 4d Other Estimates 04/11/25 LMP (Certain) 35w 2d Expected Delivery Route/Plan Patient is a 39-year-old -0-2-3 history of 3 uncomplicated vaginal deliveries in the past. Largest baby 7 lbs 10 oz Specific Issue/Plans 1 .Obesity with BMI of 45 Need NSTS/AFIs at 36 weeks 2. AMA normal NIPT, for level 2 ultrasound 3. Hypothyroid on medication. Notes Visit Date: 03/09/25 Last Updated by: Beverley Menon ([facility] Clinic)MD Induce labor at 38 weeks secondary to LGA baby, maternal morbid obesity. Tubal papers signed today. Visit Date: 02/18/25 Last Updated by: Beverley Menon ([facility])MD Patient has severe sciatic pain pain. She has an appointment with physical therapy but is not for about a month. At this point we will take her off work. She had sciatic pain in her last and knows the exercises to do. We have will take patient off now on disability. She has an appointment coming up with Dr. Urias for a repeat ultrasound for growth. 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 Recommended brace and PT. BMI 45 Visit Date: 12/05/24 Last Updated by: Beverley Menon ([facility])MD labs up-to-date on the chart ordered 10/06/2024 from [facility] /antibody negative/rubella immune/ RPR nonreactive/ hepatitis B surface antigen negative/ GC negative /Chlamydia negative/ hepatitis C negative /hepatitis B negative/ HIV negative/ urine culture negative/NIPT 46 XY hemoglobin A1c 5.7 hemoglobin 11 hematocrit [address] Level [address] Urias on chart. Baby 98th percentile. Visit Date: 11/04/24 Last Updated by: Beverley Menon ([facility])MD Clobetasol ointment ordered to face. Patient on baby aspirin. Dr. Diaz is working on thyroid. Referral to maternal- medicine for 20-week structural survey. NIPT was 46 XY. Office Procedures OBC Clinic LOC & Office Proc's Nursing/Assessment Patient Status: Established Patient OB Clinic Nursing Assessment: Medication Reconciliation, Update PMH in EMR and Vital Signs OB Clinic Coordination of Care: Education Complex Pt/Fam, Consent,records obtained, informed consent, Lab and Imaging orders, Results/Orders obtained and Staff clarify orders Special Needs: Heart tones Established Patient Charge Established Patient Point Assignment: 115 Established Patient Point Charge: EP Level 3 (80-115) Assessment & Plan Diagnosis / Problem List (1) Advanced maternal age (AMA) in : Status: Acute Plan: Normal NIPT and level 2 ultrasound. Getting NSTs BPP's (2) Morbid obesity with BMI of 40.0-44.9, adult: Status: Acute Plan: Getting NST BPP's (3) : Status: Acute Qualifiers: Weeks of gestation: 35 weeks Qualified Code(s): Z3A.35 - 35 weeks gestation of Plan: Group B strep culture next visit (4) LGA (large for gestational age) fetus affecting management of mother: Status: Acute Qualifiers: Fetus number: single or unspecified fetus Trimester: third trimester Qualified Code(s): O36.63X0 - Maternal care for excessive growth, third trimester, not applicable or unspecified Plan: Induction of labor at 38 weeks. Scheduled 03/27/2025. Additional Plan Follow Up: 1 Week
== END 2025-03-09 11:25 | disposition home or self-care (01) ==
LOC: HODSOBC 10:37
PROVIDERS: Supervising Provider Obstetrics & Gynecology; Visit Provider Obstetrics & Gynecology
DX: O09.523 Supervision of elderly multigravida, third trimester (principal); O09.893 Supervision of other high risk pregnancies, third trimester; O36.63X0 Maternal care for excessive fetal growth, third trimester, not applicable or unspecified; O99.213 Obesity complicating pregnancy, third trimester; E66.01 Morbid (severe) obesity due to excess calories; O99.283 Endocrine, nutritional and metabolic diseases complicating pregnancy, third trimester; E03.9 Hypothyroidism, unspecified; Z3A.35 35 weeks gestation of pregnancy
CPT/HCPCS: 99213; G0463

== ENCOUNTER 2025-03-18 10:20 | Outpatient (AMB) | payer BC, SELFPAY ==
[2025-03-18 10:23] VITALS: BP 118/79; PULSE 68; RESP 17; TEMP 36.4; O2SAT 98; BMI 47.9
--- NOTE | 2025-03-18 10:23 | OBCLNT_ITS ---
Vital Signs 03/18/25 10:23 Height 1.57 m Height Method Stated Weight 118.104 kg Weight Measurement Method Standing Scale BMI 47.9 BP 118/79 Blood Pressure Source Automatic Cuff Blood Pressure Location Right Upper Arm Position Sitting Respiration 17 Pulse 68 Pulse Source Monitor Temp 97.5 F Temp Source Temporal Artery Scan Pulse Oximetry (%) 98 Allergies/Home Meds Allergies & Medications Allergies No Known Allergies Allergy (Verified 03/18/25 10:26) Medication Reconciliation No Known Home Medications 01/05/25 [History Confirmed 03/18/25] Intake Visit Data Collection New Patient or Established: Established Patient (seen at [facility] within 3 years) Reason for Visit:: OBC Seen by Clinical Staff ONLY (RN/MA): No Blockman Required: No Do You Feel Safe at Home: Yes Authorities Contacted: N/A PCP or OBGYN visit in last 3 months: Yes Date of Last PCP or OBGYN visit: 03/16/25 Hx Now: Yes Are you currently on any form of Control: No Pain Present Currently: No Pain Scale Used: Peterson-Giordano/Numerical Pain scale:: 0 Smoking Status Smoking Status: Never smoker Questionnaires Covid-19 Vaccine Questionnaire Has patient been vacinated for Covid-19 Have you been vacinated for Covid-19: No PHQ-9 PHQ-2 Over the last 2 weeks, how often have you been bothered by any of the following problems? 1. Little interest or pleasure in doing things: not at all 2. Feeling down, depressed, or hopeless: not at all Total score: 0 PHQ-9 3. Trouble falling or staying asleep, or sleeping too much: Not at all 4. Feeling tired or having little energy: Not at all 5. Poor appetite or overeating: Not at all 6. Feeling bad about yourself - or that you are a failure or have let yourself or your family down: Not at all 7. Trouble concentrating on things, such as reading the newspaper or watching television: Not at all 8. Moving or speaking so slowly that other people could have noticed? - Or the opposite - being so fidgety or restless that you have been moving around a lot more than usual: not at all 9. Thoughts that you would be better off or of hurting yourself in some way: Not at all Total score: 0 If you checked off any problems, how difficult have these problems made it for you to do your work, take care of things at home, or get along with other people?: not difficult at all Source: Developed by Drs. Evangelista Brooks, Joceline Ahn, Jim King and colleagues, with an educational rubia from [employer]. 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 No vaginal bleeding or loss of fluids. Patient is tired. She reports dry skin. And states her face is very dry around her cheeks. 12/05/24 -?-?-?-?-?-?-?-?-?--?-?-?- 22w 1d 112.945 kg 110/64 23 absent active Positive feta l movement no contractions no loss of fluids having gender reveal libertarian. Has 2 boys at home and a girl. The girl is the youngest. 01/05/25 -?-?-?-?-?-?-?-?-?-?-?-?- 26w 4d 114.305 kg 108/69 27 active Good movement no contractions no loss of bleeding. Dr. Urias is going to see her next week. Order 2-hour glucose test from [facility]. Baby was measuring large at first ultrasound. Her biggest baby was 7 pounds. 02/04/25 -?-?-?-?-?-?-?-?-?-?-?-?- 30w 6d 114.532 kg 128/78 31 134 active +FM No UCs or LOF 02/18/25 -?-?-?-?-?-?-?-?-?-?-?-?- 32w 6d 115.779 kg 121/75 03/09/25 -?-?-?-?-?-?-?-?-?-?-?-?- 35w 4d 116.63 kg 133/80 03/18/25 -?-?-?-?-?-?-?-?-?-?-?-?- 36w 6d 118.104 kg 118/79 DEMETRIUS Calculator Estimated Delivery Date Method Current WG Current Estimate 04/09/25 Ultrasound #1 36w 6d Other Estimates 04/11/25 LMP (Certain) 36w 4d Expected Delivery Route/Plan Patient is a 39-year-old -0-2-3 history of 3 uncomplicated vaginal deliveries in the past. Largest baby 7 lbs 10 oz Specific Issue/Plans 1 .Obesity with BMI of 45 Need NSTS/AFIs at 36 weeks 2. AMA normal NIPT, for level 2 ultrasound 3. Hypothyroid on medication. Notes Visit Date: 03/09/25 Last Updated by: Beverley Menon ([facility] Clinic)MD Induce labor at 38 weeks secondary to LGA baby, maternal morbid obesity. Tubal papers signed today. Visit Date: 02/18/25 Last Updated by: Beverley Menon ([facility])MD Patient has severe sciatic pain pain. She has an appointment with physical therapy but is not for about a month. At this point we will take her off work. She had sciatic pain in her last and knows the exercises to do. We have will take patient off now on disability. She has an appointment coming up with Dr. Urias for a repeat ultrasound for growth. 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 Recommended brace and PT. BMI 45 Visit Date: 12/05/24 Last Updated by: Beverley Menon ([facility])MD labs up-to-date on the chart ordered 10/06/2024 from [facility] O+ /antibody negative/rubella immune/ RPR nonreactive/ hepatitis B surface antigen negative/ GC negative /Chlamydia negative/ hepatitis C negative /hepatitis B negative/ HIV negative/ urine culture negative/NIPT 46 XY hemoglobin A1c 5.7 hemoglobin 11 hematocrit [address] Urias on chart. Baby 98th percentile. Visit Date: 11/04/24 Last Updated by: Beverley Menon ([facility])MD Clobetasol ointment ordered to face. Patient on baby aspirin. Dr. Diaz is working on thyroid. Referral to maternal- medicine for 20-week structural survey. NIPT was 46 XY. Office Procedures OBC Clinic LOC & Office Proc's Nursing/Assessment Patient Status: Established Patient OB Clinic Nursing Assessment: Medication Reconciliation, Update PMH in EMR and Vital Signs OB Clinic Coordination of Care: Complex Care and Chronic Disease 1-5, Education Complex Pt/Fam, Consent,records obtained, informed consent, Lab and Imaging orders and Staff clarify orders Special Needs: Heart tones Miscellaneous Interventions: Culture Specimen Collection Established Patient Charge Established Patient Point Assignment: 150 Established Patient Point Charge: EP Level 4 (120-155) Assessment & Plan Diagnosis / Problem List (1) LGA (large for gestational age) fetus affecting management of mother: Status: Acute Qualifiers: Fetus number: single or unspecified fetus Trimester: third trimester Qualified Code(s): O36.63X0 - Maternal care for excessive growth, third trimester, not applicable or unspecified (2) Advanced maternal age (AMA) in : Status: Acute (3) Morbid obesity with BMI of 40.0-44.9, adult: Status: Acute
== END 2025-03-18 10:54 | disposition home or self-care (01) ==
LOC: HODSOBC 10:20
PROVIDERS: PCP Family Medicine; Referring Provider Family Medicine; Supervising Provider Obstetrics & Gynecology; Visit Provider Obstetrics & Gynecology
DX: O09.523 Supervision of elderly multigravida, third trimester (principal); O09.893 Supervision of other high risk pregnancies, third trimester; O36.63X0 Maternal care for excessive fetal growth, third trimester, not applicable or unspecified; O99.213 Obesity complicating pregnancy, third trimester; E66.01 Morbid (severe) obesity due to excess calories; O99.283 Endocrine, nutritional and metabolic diseases complicating pregnancy, third trimester; E03.9 Hypothyroidism, unspecified; Z3A.36 36 weeks gestation of pregnancy; Z79.890 Hormone replacement therapy
CPT/HCPCS: 99214; G0463

== ENCOUNTER 2025-03-23 10:03 | Outpatient (RCR) | payer BC, SELFPAY ==
--- NOTE | 2025-03-05 10:59 | XR_ITS ---
Examination: Biophysical profile, ultrasound Date and time of exam: March 05, 2025, 1030 hours INDICATIONS: Diagnosis advanced maternal age, diagnosis maternal obesity Technique: Multiple transabdominal sonographic images of the pelvis abdomen obtained. Attention is directed to the breathing movement, gross body movement, amniotic fluid volume and tone. Findings: Amniotic fluid index 9.8 cm Total biophysical profile is 8 of 8. breathing movement is 2. Gross body movement is 2. tone is 2. Qualitative amniotic fluid volume is 2 Impression: Biophysical profile is 8 of 8.
[2025-03-05 11:02] VITALS: BP 124/71; PULSE 80; RESP 16; TEMP 36.4
--- NOTE | 2025-03-09 11:42 | XR_ITS ---
Examination: Biophysical profile, ultrasound Date and time of exam: March 09, 2025, 1153 hours INDICATIONS: Diagnosis advanced maternal age, diagnosis maternal obesity Technique: Multiple transabdominal sonographic images of the pelvis abdomen obtained. Attention is directed to the breathing movement, gross body movement, amniotic fluid volume and tone. Findings: Amniotic fluid index 6.1 cm Total biophysical profile is 8 of 8. breathing movement is 2. Gross body movement is 2. tone is 2. Qualitative amniotic fluid volume is 2 Impression: Biophysical profile is 8 of 8.
[2025-03-09 12:32] VITALS: BP 123/62; PULSE 80; RESP 16; TEMP 36.7
--- NOTE | 2025-03-12 10:23 | XR_ITS ---
Examination: Biophysical profile, ultrasound Date and time of exam: March 12, 2025, 1025 hours INDICATIONS: Diagnosis advanced maternal age, diagnosis maternal obesity Technique: Multiple transabdominal sonographic images of the pelvis abdomen obtained. Attention is directed to the breathing movement, gross body movement, amniotic fluid volume and tone. Findings: Amniotic fluid index 5.9 cm Total biophysical profile is 8 of 8. breathing movement is 2. Gross body movement is 2. tone is 2. Qualitative amniotic fluid volume is 2 Impression: Biophysical profile is 8 of 8.
[2025-03-12 11:01] VITALS: BP 134/67; PULSE 77; RESP 16; TEMP 36.7
--- NOTE | 2025-03-16 10:24 | XR_ITS ---
Examination: Biophysical profile, ultrasound Date and time of exam: March 16, 2025, 1036 hours INDICATIONS: Diagnosis advanced maternal age, diagnosis maternal obesity Technique: Multiple transabdominal sonographic images of the pelvis abdomen obtained. Attention is directed to the breathing movement, gross body movement, amniotic fluid volume and tone. Findings: Amniotic fluid index 9.1 cm Total biophysical profile is 8 of 8. breathing movement is 2. Gross body movement is 2. tone is 2. Qualitative amniotic fluid volume is 2 Impression: Biophysical profile is 8 of 8.
[2025-03-16 11:23] VITALS: BP 120/78; PULSE 88; RESP 16; TEMP 36.7
--- NOTE | 2025-03-19 10:30 | XR_ITS ---
Examination: Biophysical profile, ultrasound Date and time of exam: March 19, 2025, 1029 hours INDICATIONS: Diagnosis advanced maternal age, diagnosis maternal obesity Technique: Multiple transabdominal sonographic images of the pelvis abdomen obtained. Attention is directed to the breathing movement, gross body movement, amniotic fluid volume and tone. Findings: Amniotic fluid index 11.5 cm Total biophysical profile is 8 of 8. breathing movement is 2. Gross body movement is 2. tone is 2. Qualitative amniotic fluid volume is 2 Impression: Biophysical profile is 8 of 8.
[2025-03-19 11:22] VITALS: BP 139/80; PULSE 75; RESP 20
--- NOTE | 2025-03-23 10:14 | XR_ITS ---
Examination: Biophysical profile, ultrasound Date and time of exam: March 23, 2025, 1040 hours INDICATIONS: Diagnosis advanced maternal age, diagnosis maternal obesity Technique: Multiple transabdominal sonographic images of the pelvis abdomen obtained. Attention is directed to the breathing movement, gross body movement, amniotic fluid volume and tone. Findings: Amniotic fluid index 9.4 cm Total biophysical profile is 8 of 8. breathing movement is 2. Gross body movement is 2. tone is 2. Qualitative amniotic fluid volume is 2 Impression: Biophysical profile is 8 of 8.
[2025-03-23 12:11] VITALS: BP 139/77; PULSE 69; RESP 20
== END 2025-03-23 23:59 | disposition home or self-care (01) ==
LOC: S4S1 10:03
PROVIDERS: Referring Provider Obstetrics & Gynecology; Visit Provider Obstetrics & Gynecology
DX: O09.523 Supervision of elderly multigravida, third trimester (principal); O99.213 Obesity complicating pregnancy, third trimester; E66.01 Morbid (severe) obesity due to excess calories; Z3A.37 37 weeks gestation of pregnancy
CPT/HCPCS: 59025; 76819

== ENCOUNTER 2025-03-25 23:59 | Inpatient (IN) | payer BC, SELFPAY ==
[2025-03-26] VITALS (117 sets, daily range): BP systolic 99–193; BP diastolic 44–114; PULSE 60–150; RESP 17–99; TEMP 36.6–36.8; O2SAT 77–100; BMI 47.9
--- NOTE | 2025-03-26 04:27 | ESHP_ITS ---
Documentation for date of: 03/26/25 OB Labor/Induct. HPI History of Present Illness Chief complaint: contractions : 6 Para: 3 Term pregnancies: 3 pregnancies: 0 Living children: 3 History of Abortions: Spontaneous and Elective: 2 History of Vaginal deliveries: 3 History of sections: No History of : No Date of last menstrual period: 07/04/24 DEMETRIUS: 04/10/25 Gestational Age (weeks): 37 Gestational Age (days): 6 Gestational age based on last menstrual period: 37 History of present illness: Patient presents for regular, painful ctx. No LOF. No vaginal bleeding. Normal movement. No fevers/chills. History of Present Adequate Care: Yes Abnormal ultrasound findings: Baby 98%ile on growth scan Narrative: Hx of 3 uncomplicated , proven to 7lb Hx of 2 sab G6 current: AMA, age 40, taking ASA 81mg PO QD Hypothyroidism taking levothyroxine 175mcg PO QD Current BMI 47.9 Desires BTL, paperwork done with Dr. Menon Labs Maternal Blood Type: O Pos Labs: Positive: Rubella Titre and Group Beta Strep, Negative: RPR, Hepatitis B, HIV, Chlamydia and Gonorrhea and Unknown: Herpes Type 1, Herpes Type 2 and Covid-19 Narrative: O+ /antibody negative/rubella immune/ RPR nonreactive/ hepatitis B surface antigen negative/ GC negative /Chlamydia negative/ hepatitis C negative /hepatitis B negative/ HIV negative/ urine culture negative/NIPT 46 XY hemoglobin A1c 5.7 hemoglobin 11 hematocrit 33 Review of Systems Review of Systems Narrative Review of Systems: Review of Systems Systems Reviewed: All systems reviewed, normal except as documented Constitutional Constitutional: Denies body ache(s), Denies chills, Denies fever(s) and Denies headache(s) ENT Ears, Nose, Mouth, and Throat: Denies headache(s) and Denies vertigo Cardiovascular Cardiovascular: Denies chest pain, Denies palpitations, Denies dyspnea and Denies syncope Respiratory Respiratory: Denies cough, Denies dyspnea Gastrointestinal Gastrointestinal: Denies nausea and Denies vomiting Neurologic Neurologic: Denies convulsions, Denies headache(s), Denies other visual disturbances, Denies syncope and Denies vertigo Past Medical History Surgical History SURGICAL: Negative Section Social History SOCIAL: No tobacco/ETOH/illicit drug use Past Medical History Comments PMH COMMENT: Hypothyroidism taking levothyroxine 175mcg PO QD Current BMI 47.9 Meds Home Medications and Allergies Home Medications ?Medication ?Instructions ?Recorded ?Confirmed ?Type aspirin 81 mg tablet 81 mg PO QDAY 03/26/2503/26 History famotidine 40 mg tablet 40 mg PO QDAY 03/26/2503/26 History levothyroxine 175 mcg capsule 175 mcg PO QDAY 03/26/25 03/26/25 History vitamin-ferrous fumarate 1 tab PO QDAY 03/26/25 History 28 mg iron-folic acid 800 mcg tablet ( Tablet) Allergies Allergy/AdvReac Type Severity Reaction Status Date / Time No Known Allergies Allergy Verified 03/26/25 00:11 OB Exam Physical Exam Vital signs: Temp Pulse Resp BP Pulse Ox 98.3 F 76 20 145/78 H 89 L 03/26/25 00:28 03/26/25 04:16 03/26/25 00:28 03/26/25 04:16 03/26/25 04:26 Narrative: General: well developed, well nourished, no acute distress, conversant Cardiac: normal heart rate Lungs: breathing without distress Abdomen: soft, gravid, non-tender, no rebound or guarding Extremities: no edema BLE Detailed Labor and Delivery Exam Dilation (cm): 5 Effacement (%): 70 Cervix position: anterior station: -3 Consistency: soft Presentation: Vertex Membranes: intact Baseline heart rate: 120 monitor accelerations: 15x15 monitor decelerations: None 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 Regular/painful contractions, SCE changed from 3 to 5/70/-3. Intact. Vitals wnl, benign exam. Reassuring assessment. PMhx/ complicated by: AMA, age 40, taking ASA 81mg PO QD Hypothyroidism taking levothyroxine 175mcg PO QD Current BMI 47.9 Desires BTL, paperwork done with Dr. Menon Plan: -Admit to L&D -Establish IV, routine labs -CEFM -Clear liquid diet -Tie Cutter/consent re: -GBS status: positive. Ampicillin per protocol. -Anticipate -Safe to proceed (2) 37 weeks gestation of : Status: Acute (3) Advanced maternal age (AMA) in : Status: Acute (4) Hypothyroidism affecting : Status: Acute (5) Morbid obesity with BMI of 40.0-44.9, adult: Status: Acute (6) LGA (large for gestational age) fetus affecting management of mother: Status: Acute (4) Hypothyroidism affecting Qualifiers: Trimester: first trimester Qualified Code(s): O99.281 - Endocrine, nutritional and metabolic diseases complicating , first trimester; E03.9 - Hypothyroidism, unspecified (6) LGA (large for gestational age) fetus affecting management of mother Qualifiers: Fetus number: single or unspecified fetus Trimester: third trimester Q ualified Code(s): O36.63X0 - Maternal care for excessive growth, third trimester, not applicable or unspecified
[2025-03-26 04:33] LABS: Basophils # (Auto) 0.0 Thou/mm3 (0.0-0.2); Basophils % (Auto) 0 % (0-2.5); Eosinophils # (Auto) 0.2 Thou/mm3 (0.0-0.5); Eosinophils % (Auto) 2 % (0-10); Hematocrit 30.7 % (36.0-46.0); Hemoglobin 9.2 g/dL (12.0-16.0); Immature Granulocytes Auto 0.06 Thou/mm3 (0.00-0.00); Lymphocytes # (Auto) 1.5 Thou/mm3 (1.0-4.8); Lymphocytes % (Auto) 14 % (10-50); Mean Corpuscular HGB Conc 30.0 g/dl (31.0-37.0); Mean Corpuscular Hemoglobin 22.5 pg (25.0-35.0); Mean Corpuscular Volume 75 fL (80-100); Monocytes # (Auto) 0.7 Thou/mm3 (0.0-0.8); Monocytes % (Auto) 7 % (0-12); Neutrophils # (Auto) 8.1 Thou/mm3 (1.8-7.7); Neutrophils % (Auto) 77 % (37-80); Nucleated Red Blood Cell # 0.00 Thou/mm3 (0.00-0.00); Nucleated Red Blood Cell % 0 /100 WBC (0); Platelet Count 231 Thou/mm3 (140-440); RDW Standard Deviation 39.8 fL (36.4-46.3); Red Blood Count 4.08 Miln/mm3 (4.00-5.20); White Blood Count 10.5 Thou/mm3 (3.6-11.0)
[2025-03-26] MEDS: Ampicillin Inj 2,000 MG in SODIUM CHLORIDE 0.9% (POP) 100 ML 200 MG IV (04:45)
[2025-03-26 05:10] LABS: Syphilis Nonreactive (Nonreactive)
[2025-03-26] MEDS: OXYTOCIN in NS 20 units 20 UNIT/1,000 ML BAG 125 UNIT IV (06:40)
[2025-03-26] MEDS: OXYTOCIN INJ 10 UNIT/ML VIAL IM (06:45)
--- NOTE | 2025-03-26 07:02 | OBDSUM_ITS ---
Data ([place]) Data Hx Section: No : 6 Term: 3 : 0 Livin Abortions: Spontaneous & Theraputic: 2 Delivery Data ([place]rell) Labor Data Initiation of labor: Spontaneous Induction/Augmentation Agent: Artificial ROM ROM date: 03/26/25 ROM time: 05:37 Amniotic membrane rupture type: Artificial Amniotic fluid description: Clear Delivery Data Onset of labor date: 03/25/25 Onset of labor time: 19:00 Complete dilation date: 03/26/25 Complete dilation time: 06:24 delivery date: 03/26/25 [place] delivery time: 06:32 Placenta delivery date: 03/26/25 Placenta delivery time: 06:45 Stage 1 total time: Labor - Stage 1 Duration 11 hours and 24 minutes Delivered by: Deanne Marks Delivery nurse: SVETA PADRON [place] nurse: YONY SKELTON RN Retail Marketing Manager at delivery: No Support person(s) at delivery: FATHER OF THE BABY Other staff at delivery: Nicolás CHEN RNsplunk architect Method Delivery method: Normal Vaginal Delivery Presentation: Vertex Anesthesia Type Anesthesia Type: Epidural Placenta Placenta delivery description: Spontaneous cord blood collection: Cord Blood Type EBL Estimated blood loss (ml): 300 Umbilical Cord cord description: 3 Vessels Additional Procedures Katey is a 40yo s/p uncomplicated at 37&6wk after presenting in active labor, delivering at 0632 on 03/26/2025. On presentation, SCE was 5cm. She progressed quickly to C/C/0 at which point she began pushing. She received an epidural. With good maternal pushing efforts, infant's head delivered OA and restituted [place]. Left anterior shoulder delivered easily followed by posterior shoulder and corpus. had spontaneous cry and was vigorous. Apgars 7/9. placed on maternal abdomen where nose/mouth were suctioned and infant dried/stimulated. After approximately 2 minutes, cord was clamped x2 and cut by FOB. (True knot present in cord) Cord blood collected for typing. With fundal massage and cord traction, placenta delivered spontaneously and intact with 3 vessel centrally inserted cord. Bimanual massage performed and IV pitocin given per protocol with fundus then firm at u-2cm and hemostasis noted. Inspection of perineum and vagina revealed no lacerations. Small trickle of blood, so sweep just within cervix/CAROLINE performed which retrieved a very small amount of clot. Fundus and CAROLINE remained firm. All counts correct x2. Mom and were doing well when I left the room. Deanne Marks MD Complications Complications: none [place] Data ([place]rell) Data order: 1 [place]'s gender: Male Identification band number: [id number] weight (gms): 3560 g Weight (pounds): 7 lbs and 13.6 ozs 1 minute: 7 5 minutes: 9
[2025-03-26] MEDS: PRENATAL VITAMIN/FE FUM/FA TABLET 1 TAB PO (09:20)
[2025-03-26] MEDS: FAMOTIDINE 20 MG TABLET 40 MG PO (09:20)
[2025-03-26] MEDS: DOCUSATE SOD 100 MG CAPSULE PO ×2 (09:20→21:27)
[2025-03-26 13:34] LABS: Basophils # (Auto) 0.0 Thou/mm3 (0.0-0.2); Basophils % (Auto) 0 % (0-2.5); Eosinophils # (Auto) 0.1 Thou/mm3 (0.0-0.5); Eosinophils % (Auto) 1 % (0-10); Hematocrit 26.7 % (36.0-46.0); Hemoglobin 8.2 g/dL (12.0-16.0); Immature Granulocytes Auto 0.08 Thou/mm3 (0.00-0.00); Lymphocytes # (Auto) 1.2 Thou/mm3 (1.0-4.8); Lymphocytes % (Auto) 11 % (10-50); Mean Corpuscular HGB Conc 30.7 g/dl (31.0-37.0); Mean Corpuscular Hemoglobin 23.1 pg (25.0-35.0); Mean Corpuscular Volume 75 fL (80-100); Monocytes # (Auto) 1.1 Thou/mm3 (0.0-0.8); Monocytes % (Auto) 9 % (0-12); Neutrophils # (Auto) 9.0 Thou/mm3 (1.8-7.7); Neutrophils % (Auto) 78 % (37-80); Nucleated Red Blood Cell # 0.00 Thou/mm3 (0.00-0.00); Nucleated Red Blood Cell % 0 /100 WBC (0); Platelet Count 185 Thou/mm3 (140-440); RDW Standard Deviation 39.8 fL (36.4-46.3); Red Blood Count 3.55 Miln/mm3 (4.00-5.20); White Blood Count 11.5 Thou/mm3 (3.6-11.0)
[2025-03-26] MEDS: IBUPROFEN TAB 400 MG TABLET 800 MG PO (13:58)
[2025-03-27] MEDS: IBUPROFEN TAB 400 MG TABLET 800 MG PO (00:47)
[2025-03-27 01:05] VITALS: BP 121/78; PULSE 71; RESP 18; TEMP 36.8; O2SAT 98
[2025-03-27 04:17] VITALS: BP 123/72; PULSE 74; RESP 14; TEMP 36.6; O2SAT 98
[2025-03-27] MEDS: ACETAMINOPHEN 325 MG TABLET 650 MG PO (05:12)
[2025-03-27] MEDS: LEVOTHYROXINE SODIUM 125 MCG, LEVOTHYROXINE SODIUM 50 MCG 175 MCG PO (06:31)
[2025-03-27 07:35] VITALS: BP 134/80; PULSE 71; RESP 16; TEMP 36.6; O2SAT 98
[2025-03-27] MEDS: FAMOTIDINE 20 MG TABLET 40 MG PO (08:57)
[2025-03-27] MEDS: DOCUSATE SOD 100 MG CAPSULE PO (08:57)
[2025-03-27] MEDS: PRENATAL VITAMIN/FE FUM/FA TABLET 1 TAB PO (08:57)
[2025-03-27 12:10] VITALS: BP 125/80; PULSE 65; RESP 16; TEMP 37.2; O2SAT 98
--- NOTE | 2025-03-27 12:43 | PD.LDPPPRG ---
Subjective Subjective Interval history: Patient is a 40-year-old G6 now P4023 day #1. She underwent a vaginal delivery 1016 approximately 6:45 in the morning by Dr. Howard. Her baby weighed 7 pounds 14 ounces. Today she is denying heavy bleeding or severe pain. She is resting comfortably in breath bed. She is breast-feeding. Her other children age 16, 12 and 3. She would like to go home. Exam Vital Signs Temp Pulse Resp BP Pulse Ox O2 Del Method 98.9 F 65 16 125/80 98 Room Air 03/27/25 12:10 03/27/25 12:10 03/27/25 12:10 03/27/25 12:10 03/27/25 12:10 03/27/25 12:10 Narrative Exam Patient is alert and orient x 3 in no apparent distress resting comfortably in bed wearing her own pajamas. Abdomen is obese, fundus firm at umbilicus. Extremities show no significant edema or erythema. Objective Labs 03/26/25 13:09 Labs: Laboratory Results - last 24 hr 03/26/25 13:09 WBC 11.5 H RBC 3.55 L Hgb 8.2 L Hct 26.7 L MCV 75 L MCH 23.1 L MCHC 30.7 L RDW Std Deviation 39.8 Plt Count 185 D Neut % (Auto) 78 Lymph % (Auto) 11 [place] % (Auto) 9 Eos % (Auto) 1 Baso % (Auto) 0 Neut # (Auto) 9.0 H Lymph # (Auto) 1.2 [place] # (Auto) 1.1 H Eos # (Auto) 0.1 Baso # (Auto) 0.0 Immature Gran # (Auto) 0.08 H Absolute Nucleated RBC 0.00 Immature Gran % 1 H Nucleated RBC % 0 Assessment & Plan Problem List (1) Advanced maternal age (AMA) in : Status: Acute (2) Hypothyroidism affecting : Problem details: Continue thyroid medications and follow-up with primary care Status: Acute (3) Morbid obesity with BMI of 40.0-44.9, adult: Problem details: Encouraged lots of walking. Status: Acute (4) care following vaginal delivery: Problem details: Pelvic rest x 6 weeks. Moderate exercise. Drink lots of water with breast-feeding. Patient was told she is anemic and needs to continue her vitamins and eat a high iron diet. Follow-up in the office in 6 weeks. Status: Acute Time Spent With Patient Time: Total time spent is greater than 50% in coordination of care (as documented) at patient's floor/unit and/or counseling patient: Time with patient: less than 15 minutes
--- NOTE | 2025-03-27 12:47 | PD.LDDS ---
DS: Providers Provider Date of admission: 03/26/25 03:48 Primary care physician: Physician No Primary/Family Admitting Provider: Deanne Marks MD Attending Provider on Admission: Deanne Marks MD Consults: 03/26/25 07:00 Referral Routine Comment: Attending Provider on DC: Beverley Menon MD ([facility]) Discharging Provider: Beverley Menon MD ([facility]) Anticipated date of discharge: 03/27/25 DS: Diagnosis Discharge Diagnosis (1) care following vaginal delivery: Status: Acute Assessment & Plan: Pelvic rest x 6 weeks. Moderate exercise. High iron foods. Continue vitamin (2) Advanced maternal age (AMA) in : Status: Acute (3) Hypothyroidism affecting : Status: Acute Assessment & Plan: Continue thyroid medication. Follow-up with primary care for thyroid medication refill (4) Morbid obesity with BMI of 40.0-44.9, adult: Status: Acute Assessment & Plan: Moderate exercise to prevent DVT. Problem List Completed Was Problem List Reviewed/Reconciled?: Yes Summary/Hosp Course Brief History: Patient presents for regular, painful ctx. No LOF. No vaginal bleeding. Normal movement. No fevers/chills. The patient was admitted by Dr. Marks. Please see history and physical for further details. Hospital course: Patient underwent an uncomplicated vaginal delivery the morning of 03/26/2025. Please see delivery note for further details. The patient had an uncomplicated course. She was discharged home day #1 in stable condition. Peripartum Data Delivery Method: Normal Vaginal Delivery Laceration Description: see Delivery Summary complications: none Status at Discharge Functional status at discharge: independent ambulation Overall status at discharge: patient is progressing back to baseline Time Spent with Patient Time attestation: Total time spent providing and/or coordinating discharge services: Time spent: Less than 30 minutes Specific discharge activities: Pelvic rest x 6 weeks Exam Vital Signs Temp Pulse Resp BP Pulse Ox O2 Del Method 98.9 F 65 16 125/80 98 Room Air 03/27/25 12:10 03/27/25 12:10 03/27/25 12:10 03/27/25 12:10 03/27/25 12:10 03/27/25 12:10 Narrative Exam Patient is alert and orient x 3 in no apparent distress. Fundus is firm nontender extremities showed no significant edema or erythema. Discharge Plan Plan Patient Disposition: HOME (Self Care) Disposition Comment: Stable Patient condition on transfer: Stable Prescriptions/Referrals Prescriptions/Med Rec: New docusate sodium 100 mg Capsule 100 mg PO BID 10 Days Qty: 20 0RF ibuprofen 800 mg tablet 800 mg PO Q8H PRN (Reason: See Comments) 10 Days Qty: 20 0RF Continued vit-iron fum-folic ac [ Tablet] 28 mg iron- 800 mcg tablet 1 tab PO QDAY famotidine 40 mg tablet 40 mg PO QDAY levothyroxine 175 mcg capsule 175 mcg PO QDAY Discontinued aspirin 81 mg tablet 81 mg PO QDAY Referrals: No Primary/Family,Physician [Primary Care Provider] Patient/Caregiver Discharge Instructions Discharge Activity: activity as tolerated Other Discharge Activity Instructions:: Pelvic rest x 6 weeks. Ambulate daily to prevent DVTs. Other Discharge Diet Instructions: Continue vitamins. Drink a lot of water with breast-feeding. High iron diet. Education Materials: After Delivery [place] Concerns, Breast Care After , : Caring for Yourself, Feel Healthy After Print Language: Tam[place]ight Activity Restrictions/Additional Instructions: Pelvic rest x 6 weeks. No tampons intercourse bathtubs swimming x 6 weeks. Call for fevers, heavy vaginal bleeding or severe depression. Follow-up in 6 weeks. Stand Alone Forms: Cathleen Award Info., Patient Portal Info Letter Discharge Order Discharge Orders: Discharge (Routine); Ordered 03/27/25 Ordered By: Beverley Menon ([facility]) Planned Discharge Date 03/27/25 (3) Hypothyroidism affecting Qualifiers: Trimester: first trimester Qualified Code(s): O99.281 - Endocrine, nutritional and metabolic diseases complicating , first trimester; E03.9 - Hypothyroidism, unspecified
[2025-03-27 14:22] VITALS: BP 123/78; PULSE 68; RESP 16; TEMP 37.1; O2SAT 97
== END 2025-03-27 14:22 | disposition home or self-care (01) | DRG 807 ==
LOC: S4SX 03-26 07:43 → S4NX 03-26 10:36
PROVIDERS: Admitting Provider Obstetrics & Gynecology; Visit Provider Obstetrics & Gynecology
DX: O99.824 Streptococcus B carrier state complicating childbirth (principal); Z37.0 Single live birth; O99.02 Anemia complicating childbirth; O99.284 Endocrine, nutritional and metabolic diseases complicating childbirth; E03.9 Hypothyroidism, unspecified; O36.63X0 Maternal care for excessive fetal growth, third trimester, not applicable or unspecified; O99.214 Obesity complicating childbirth; E66.01 Morbid (severe) obesity due to excess calories; O69.2XX0 Labor and delivery complicated by other cord entanglement, with compression, not applicable or unspecified; Z3A.37 37 weeks gestation of pregnancy; Z79.890 Hormone replacement therapy
CPT/HCPCS: 36415; 59025; 59409; 85025; 86780; 86850; 86900; 86901; 94762; J0290; J2371; J2590; J2795; J3010; A9270

== ENCOUNTER 2025-04-23 10:15 | Outpatient (AMB) | payer BC, SELFPAY ==
[2025-04-23 10:20] VITALS: BP 126/82; PULSE 68; RESP 18; TEMP 36.2; O2SAT 96; BMI 45.1
--- NOTE | 2025-04-23 10:20 | AMBOBPPN_ITS ---
Vital Signs 04/23/25 10:20 Height 1.57 m Height Method Stated Weight 111.13 kg Weight Measurement Method Standing Scale BMI 45.1 BP 126/82 Blood Pressure Source Automatic Cuff Blood Pressure Location Right Upper Arm Position Sitting Respiration 18 Pulse 68 Pulse Source Monitor Temp 97.2 F Temp Source Temporal Artery Scan Pulse Oximetry (%) 96 Oxygen Delivery Method Room Air Allergies/Home Meds Allergies & Medications Allergies No Known Allergies Allergy (Verified 04/23/25 10:21) Medication Reconciliation famotidine 40 mg tablet 40 mg PO QDAY 03/26/25 [History Confirmed 04/23/25] levothyroxine 175 mcg capsule 175 mcg PO QDAY 03/26/25 [History Confirmed 04/23/25] vitamin-ferrous fumarate 28 mg iron-folic acid 800 mcg tablet ( Tablet) 1 tab PO QDAY 03/26/25 [History Confirmed 04/23/25] Intake Visit Data Collection New Patient or Established: Established Patient (seen at [facility] within 3 years) Reason for Visit:: 4 WEEK Seen by Clinical Staff ONLY (RN/MA): No Mlt Required: No Do You Feel Safe at Home: Yes Authorities Contacted: N/A PCP or OBGYN visit in last 3 months: Yes Date of Last PCP or OBGYN visit: 03/18/25 Hx Now: No Are you currently on any form of Control: No Pain Present Currently: No Pain Scale Used: Peterson-Giordano/Numerical Pain scale:: 0 Smoking Status Smoking Status: Never smoker Immunizations Flu Vaccine in the Last 12 Months: No Flu Vaccine Exclusion Criteria: No Exclusion Criteria SUPERINTENDENT CONSTRUCTION: Past Medical History Past Medical History: No Hx Neurological Disorders, Yes Hx Hypothyroidism, No Hx Cardiac Disorders, No Hx Cancer, Yes Hx Blood Disorders, Yes Hx Anemia, Yes Hx Gastrointestinal Disorders (Indigestion), No Hx Renal Disease, No Hx Diabetes Mellitus Type 1, No Hx Diabetes Mellitus Type 2 and No Hx Polycystic Ovarian Syndrome Questionnaires Covid-19 Vaccine Questionnaire Has patient been vacinated for Covid-19 Have you been vacinated for Covid-19: No Social History Living Situation History Marital Status: Lives With: Family Housing: House Housing Other:: 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 No set hours Tobacco History Smoking Status: Never smoker Second Hand Smoke Exposure: No Alcohol History Alcohol Intake: Never Domestic Abuse History Do You Feel Safe at Home: Yes EPDS - PP Depression Screening [place] Pospartum Depression Screen I have been able to laugh and see the funny side of things: (0) As much as I always could I have looked forward with enjoyment to things: (0) As much as I ever did I have blamed myself unnecessarily when things went wrong: (0) No, never I have been anxious or worried for no good reason: (0) No, not at all I have felt scared or panicky for no very good reason: (0) No, not at all Things have been getting on top of me: (0) No, I have been coping as well as ever I have been so unhappy that I have had difficulty sleeping: (0) No, not at all I have felt sad or miserable: (0) No, not at all I have been so unhappy that I have been crying: (0) No, never The thought of harming myself has occurred to me: (0) Never EPDS completed yes Care OB Visit Log OB Flowsheet Initial Weight: Not Recorded Date -?-?-?-?-?-?-?-?-?-?-?-?- EGA Weight BP Alb Glu CTX Pres Fundal ht FHR Mov Dilation Station Effacement Hx Notes Visit Note 11/04/24 -?-?-?-?-?-?-?-?-?-?-?-?- 17w 5d 112.151 kg 113/75 17 active Positive flutter. No vaginal bleeding or loss of fluids. Patient is tired. She reports dry skin. And states her face is very dry around her cheeks. 12/05/24 -?-?-?-?-?-?-?-?-?-?-?-?- 22w 1d 112.945 kg 110/64 23 absent active Positive feta l movement no contractions no loss of fluids having gender reveal democrat. Has 2 boys at home and a girl. The girl is the youngest. 01/05/25 -?-?-?-?-?-?-?-?-?-?-?-?- 26w 4d 114.305 kg 108/69 27 active Good movement no contractions no loss of bleeding. Dr. Urias is going to see her next week. Order 2-hour glucose test from [facility]. Baby was measuring large at first ultrasound. Her biggest baby was 7 pounds. 02/04/25 -?-?-?-?-?-?-?-?-?-?-?-?- 30w 6d 114.532 kg 128/78 31 134 active +FM No UCs or LOF 02/18/25 -?-?-?-?-?-?-?-?-?-?-?-?- 32w 6d 115.779 kg 121/75 03/09/25 -?-?-?-?-?-?-?-?-?-?-?-?- 35w 4d 116.63 kg 133/80 03/18/25 -?-?-?-?-?-?-?-?-?-?-?-?- 36w 6d 118.104 kg 118/79 DEMETRIUS Calculator Estimated Delivery Date Method Current WG Current Estimate 04/09/25 Ultrasound #1 42w 0d Other Estimates 04/11/25 LMP (Certain) 41w 5d Expected Delivery Route/Plan Patient is a 39-year-old -0-2-3 history of 3 uncomplicated vaginal deliveries in the past. Largest baby 7 lbs 10 oz Specific Issue/Plans 1 .Obesity with BMI of 45 Need NSTS/AFIs at 36 weeks 2. AMA normal NIPT, for level 2 ultrasound 3. Hypothyroid on medication. Notes Visit Date: 03/09/25 Last Updated by: Beverley Menon ([facility])MD Induce labor at 38 weeks secondary to LGA baby, maternal morbid obesity. Tubal papers signed today. Visit Date: 02/18/25 Last Updated by: Beverley Menon ([facility])MD Patient has severe sciatic pain pain. She has an appointment with physical therapy but is not for about a month. At this point we will take her off work. She had sciatic pain in her last and knows the exercises to do. We have will take patient off now on disability. She has an appointment coming up with Dr. Urias for a repeat ultrasound for growth. 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 Recommended brace and PT. BMI 45 Visit Date: 12/05/24 Last Updated by: Beverley Menon ([facility])MD labs up-to-date on the chart ordered 10/06/2024 from [facility] /antibody negative/rubella immune/ RPR nonreactive/ hepatitis B surface antigen negative/ GC negative /Chlamydia negative/ hepatitis C negative /hepatitis B negative/ HIV negative/ urine culture negative/NIPT 46 XY hemoglobin A1c 5.7 hemoglobin 11 hematocrit [address] Urias on chart. Baby 98th percentile. Visit Date: 11/04/24 Last Updated by: Beverley Menon ([facility])MD Clobetasol ointment ordered to face. Patient on baby aspirin. Dr. Diaz is working on thyroid. Referral to maternal- medicine for 20-week structural survey. NIPT was 46 XY. HPI Interval History: 40-year-old 5 para 4 for 4-week and Mirena consult. Patient cc in the past with no problems. She is not sexually active. She had a vaginal March 26, 2025. Was uncomplicated. She is breast-feeding. She had little boy that weighed 7 pounds 13. Siblings are adjusting. She is happy no depression. The father the baby is involved and she has family support at home. Was or delivery considered high risk: Yes Delivery type: vaginal Was labor induced: no Gestational age at delivery (weeks): 37 Delivery date: 03/26/25 Delivering provider: todd Delivery complications: Yes Is patient : Yes Is patient sexually active: No Contraception planned: mirena Review of Systems Review of Systems ROS limited to current SUPERINTENDENT CONSTRUCTION complaints: Yes Exam Narrative Physical exam: Normal heart rate and rhythm. Lungs clear no wheezes. Abdomen is soft nontender. Uterus well involuted. Perineum is intact no lacerations. No swelling. Small lochia. Negative Homans' sign. 2+ DTRs. No edema no swelling. Breasts are soft Office Procedures [facility] LOC & Office Proc's Nursing/Assessment Patient Status: Established Patient OB Clinic Nursing Assessment: Medication Reconciliation, Update PMH in EMR and Vital Signs OB Clinic Coordination of Care: Complex Care and Chronic Disease 1-5, Education Complex Pt/Fam, Consent,records obtained, informed consent and Staff clarify orders Established Patient Charge Established Patient Point Assignment: 90 Established Patient Point Charge: EP Level 3 (80-115) Antepartum Initial or Follow-up Antepartum Initial Visit: Yes Assessment & Plan Diagnosis / Problem List (1) care following vaginal delivery: Status: Acute Plan Reviewed Mirena insert. And we also reviewed method and side effects. No sex till insert. Reviewed latching and breast-feeding positions. Continue prenatals. Increase fluids return for Mirena insert Care Reviewed delivery summary and any complications: Yes Uterus involuted to: 3 below Perineal / incision healing noted: Yes Screened for depression: Yes Depression counseling provided: No Discussed family planning & contraception: Yes Contraception planned: mirena Counseling on safe resumption of sexual activity: Yes Counseling on gradual excercise: Yes Discussed and concerns (describe), provided support: Yes Referred to clinical applications specialist: No Counseled on good nutrition, hydration, and self care: Yes Reviewed vaccine status: No Chronic & current problems reconciled on problem list: Yes care discussed; questions answered: feeding Follow up: routine/prn Additional counseling & anticipatory guidance provided: Reviewed Mirena inserted and method and side effects. Take ibuprofen prior to insert about 1/2-hour. Reviewed latching and breast-feeding positions return in 2 weeks for Mirena insert
== END 2025-04-23 10:57 | disposition home or self-care (01) ==
LOC: HODSOBC 10:15
PROVIDERS: Supervising Provider Advanced Practice Midwife; Visit Provider Advanced Practice Midwife
DX: Z39.2 Encounter for routine postpartum follow-up (principal); Z39.1 Encounter for care and examination of lactating mother; Z30.014 Encounter for initial prescription of intrauterine contraceptive device; O99.285 Endocrine, nutritional and metabolic diseases complicating the puerperium; E03.9 Hypothyroidism, unspecified; Z79.890 Hormone replacement therapy
CPT/HCPCS: 59425; 99213; G0463